=== PATIENT | female | born 1935 | race Caucasian/White ===

== ENCOUNTER → 2016-12-30 | Outpatient (REF) | payer MEDICARE, MEDICAID ==
[~2016-12-30] MED LIST: ASPI81TA85 PO; ATEN50TA2 PO; CALCTAB68 PO; HYDR12.55 PO; LISI-538 PO; METF850T PO; NAPR250T2 PO; NEXI40CA PO; NORV5TAB PO; PIOG30TA4 PO; POTA10CA PO; PRAV40TA2 PO; SITA50TAB PO; VOLT1GEL24 TD
[2016-12-30 11:54] LABS: ALBUMIN 4.2 GM/DL (3.2-5.2); ALBUMIN/GLOBULIN RATIO 1.27 (1.00-1.93); BILIRUBIN,TOTAL 0.7 MG/DL (0.2-1.0); CALCIUM LEVEL 9.6 MG/DL (8.8-10.2); CREATININE FOR GFR 1.23 MG/DL (0.55-1.02); GLOMERULAR FILTRATION RATE 44.4 (>32); POTASSIUM SERUM 4.5 MEQ/L (3.5-5.1); TOTAL PROTEIN 7.5 GM/DL (6.4-8.2)
== END ==
LOC: M SFHCLERA 09:38
PROVIDERS: ATTEND Physician Assistant
DX: I10 Essential (primary) hypertension (principal); E11.9 Type 2 diabetes mellitus without complications; E78.2 Mixed hyperlipidemia; E55.9 Vitamin D deficiency, unspecified
CPT/HCPCS: 80053; 80061; 82306; 83036; G0463

== ENCOUNTER → 2017-12-15 | Outpatient (REF) | payer MEDICARE, MEDICAID ==
[2017-12-15 16:37] LABS: HEMOGLOBIN 14.1 g/dl (12.0-15.5); MEAN CORPUSCULAR HEMOGLOBIN 29.9 pg (27.0-33.0); MEAN CORPUSCULAR HGB CONC 31.3 g/dl (32.0-36.5); MEAN CORPUSCULAR VOLUME 95.3 fl (80.0-96.0); PLATELET COUNT, AUTOMATED 232 10^3/uL (150-450); RED BLOOD COUNT 4.72 10^6/uL (4.00-5.40); RED CELL DISTRIBUTION WIDTH 13.7 % (11.5-14.5); WHITE BLOOD COUNT 10.4 10^3/uL (4.0-10.0)
[2017-12-15 16:57] LABS: ESTIMATED AVERAGE GLUCOSE 189 MG/DL (60-110); HEMOGLOBIN A1c 8.2 %
[2017-12-15 17:00] LABS: ALBUMIN/GLOBULIN RATIO 1.18 (1.00-1.93); ALKALINE PHOSPHATASE 50 U/L (45-117); ALT/SGPT 16 U/L (12-78); ANION GAP 7 MEQ/L (8-16); AST/SGOT 18 U/L (7-37); BILIRUBIN,TOTAL 0.6 MG/DL (0.2-1.0); BLOOD UREA NITROGEN 32 MG/DL (7-18); CALCIUM LEVEL 9.5 MG/DL (8.8-10.2); CARBON DIOXIDE LEVEL 22 MEQ/L (21-32); CHLORIDE LEVEL 113 MEQ/L (98-107); CHOLESTEROL LEVEL 153 MG/DL (<200); CREATININE FOR GFR 1.36 MG/DL (0.55-1.30); GLOMERULAR FILTRATION RATE 39.4 (>32); GLUCOSE, FASTING 129 MG/DL (70-100); HDL CHOLESTEROL 45 MG/DL (>40); LDL CHOLESTEROL 82.4 MG/DL (<100); MAGNESIUM LEVEL 1.4 MG/DL (1.8-2.4); NON-HDL-C 108 MG/DL; SODIUM LEVEL 142 MEQ/L (136-145); TOTAL PROTEIN 7.4 GM/DL (6.4-8.2); TRIGLYCERIDES LEVEL 128 MG/DL (<150)
[2017-12-15 17:03] LABS: POTASSIUM SERUM 5.5 MEQ/L (3.5-5.1)
[2017-12-15 17:11] LABS: MALB URINE SIEMENS 25.5 MG/L; MAU/CREAT RATIO 22.9 MCG/MG (0.0-30.0)
== END ==
LOC: M SFHCLERA 11:11
DX: E11.9 Type 2 diabetes mellitus without complications (principal); F03.90 Unspecified dementia, unspecified severity, without behavioral disturbance, psychotic disturbance, mood disturbance, and anxiety; E78.2 Mixed hyperlipidemia
CPT/HCPCS: 83735

== ENCOUNTER 2017-12-30 12:28 | Inpatient (IN) | payer MEDICARE, MEDICAID ==
[2017-12-30] MEDS ORDERED: NS 1,000 ML IV (12:59)
[2017-12-30] MEDS: NS 500 ML IV (13:00)
[2017-12-30 13:31] LABS: VENOUS BASE EXCESS -12.1 (-2.0-2.0); VENOUS HCO3 14.4 MEQ/L (23.0-27.0); VENOUS O2 SATURATION 55.9 % (60.0-80.0); VENOUS PARTIAL PRESSURE CO2 35.1 mmHg (38.0-50.0); VENOUS PARTIAL PRESSURE O2 29.1 mmHg (30.0-50.0); VENOUS PH 7.232 UNITS (7.330-7.430); VENOUS STANDARD HCO3 14.4 MEQ/L; VENOUS TOTAL CO2 15.5 MEQ/L (24.0-28.0)
[2017-12-30 13:35] LABS: BASO # 0.1 10^3/uL (0.0-0.2); BASO % 0.8 % (0.0-1.0); EOS # 0.2 10^3/uL (0.0-0.50); EOS % 1.5 % (0.0-3.0); HEMATOCRIT 43.8 % (36.0-47.0); HEMOGLOBIN 14.1 g/dl (12.0-15.5); IMMATURE GRANULOCYTE % 1.7 % (0-3.0); LYMPH # 1.3 10^3/uL (1.5-4.5); LYMPH % 13.1 % (24.0-44.0); MEAN CORPUSCULAR HEMOGLOBIN 30.1 pg (27.0-33.0); MEAN CORPUSCULAR HGB CONC 32.2 g/dl (32.0-36.5); MEAN CORPUSCULAR VOLUME 93.4 fl (80.0-96.0); MONO # 0.9 10^3/uL (0.0-0.8); MONO % 8.6 % (0.0-5.0); NEUTROPHILS # 7.6 10^3/uL (1.8-7.7); NEUTROPHILS % 74.3 % (36.0-66.0); PLATELET COUNT, AUTOMATED 235 10^3/uL (150-450); RED BLOOD COUNT 4.69 10^6/uL (4.00-5.40); RED CELL DISTRIBUTION WIDTH 14.4 % (11.5-14.5); WHITE BLOOD COUNT 10.2 10^3/uL (4.0-10.0)
[2017-12-30 13:51] LABS: AMMONIA 13 uMOL/L (<32)
[2017-12-30 13:54] LABS: LACTIC ACID SEPSIS PROTOCOL 1.5 MMOL/L (0.4-2.0)
[2017-12-30 14:52] LABS: ACETAMINOPHEN LEVEL < 2.0 UG/ML (10.0-30.0); ALBUMIN 3.3 GM/DL (3.2-5.2); ALBUMIN/GLOBULIN RATIO 0.87 (1.00-1.93); ALKALINE PHOSPHATASE 56 U/L (45-117); ALT/SGPT 15 U/L (12-78); ANION GAP 8 MEQ/L (8-16); AST/SGOT 17 U/L (7-37); BILIRUBIN,DIRECT 0.1 MG/DL (0.0-0.2); BILIRUBIN,TOTAL 0.3 MG/DL (0.2-1.0); BLOOD UREA NITROGEN 60 MG/DL (7-18); CALCIUM LEVEL 9.3 MG/DL (8.8-10.2); CARBON DIOXIDE LEVEL 15 MEQ/L (21-32); CHLORIDE LEVEL 119 MEQ/L (98-107); CPK CREATINE PHOSPHOKINASE 85 U/L (26-192); CREATININE FOR GFR 1.62 MG/DL (0.55-1.30); GLOMERULAR FILTRATION RATE 32.2 (>32); GLUCOSE, FASTING 128 MG/DL (70-100); SALICYLATE LEVEL < 1.7 MG/DL (5.0-30.0); SODIUM LEVEL 142 MEQ/L (136-145); TOTAL PROTEIN 7.1 GM/DL (6.4-8.2); TROPONIN I < 0.02 NG/ML (< 0.10)
[2017-12-30 14:55] LABS: ETHYL ALCOHOL (ETHANOL) < 0.003 % (0.000-0.010)
[2017-12-30 14:56] LABS: POTASSIUM SERUM 6.7 MEQ/L (3.5-5.1)
[2017-12-30] MEDS: HumuLIN R (REGULAR) INSULIN (NovoLIN R) **100U/ML** PER UNIT IV (15:38)
[2017-12-30] MEDS: DEXTROSE 50% 50 ML SYRINGE IV (15:38)
[2017-12-30] MEDS: LACTULOSE 20 GM/30 ML SYRUP UD PO (15:45)
[2017-12-30 15:58] LABS: KETONE, URINE AUTO RFX NEGATIVE (NEGATIVE); LEUKOCYTE ESTERASE UR AUTO RFX 1+ (NEGATIVE); MUCUS, URINE RFX SMALL (NEGATIVE); NITRITE, URINE AUTO RFX NEGATIVE (NEGATIVE); RBC, URINE AUTO RFX 2 /HPF (0-3); SPECIFIC GRAVITY UR AUTO RFX 1.014 (1.002-1.035); SQUAM EPITHELIAL CELL UR AURFX 5 /HPF (0-6); WBC, URINE AUTO RFX 10 /HPF (0-3)
[2017-12-30] MEDS: CALCIUM GLUCONATE 1,000 MG in D5W MINI-BAG PLUS 100 ML IV (16:08)
[2017-12-30] MEDS: SOD POLYSTYRENE SULFONATE SUSP 15 GM/60 ML UD PO (16:08)
[2017-12-30 16:13] LABS: AMPHETAMINES LEVEL URINE NEGATIVE (NEGATIVE); BARBITURATES URINE NEGATIVE (NEGATIVE); BENZODIAZEPINES URINE NEGATIVE (NEGATIVE); CANNABINOIDS URINE NEGATIVE (NEGATIVE); COCAINE METABOLITE URINE NEGATIVE (NEGATIVE); METHADONE URINE NEGATIVE (NEGATIVE); OPIATES URINE NEGATIVE (NEGATIVE); PHENCYCLIDINE URINE NEGATIVE (NEGATIVE)
[2017-12-30] MEDS: SODIUM BICARBONATE 150 MEQ in D5W 1,000 ML IV (16:29)
[2017-12-30] MEDS: ISOSORBIDE MON. (IMDUR) 30 MG XR TAB PO (16:30)
[2017-12-30] MEDS ORDERED: GLUCAGON FOR INJ 1 MG VIAL (J1610) SC (16:30)
[2017-12-30] MEDS ORDERED: DEXTROSE 50% 50 ML SYRINGE IV (16:30)
[2017-12-30] MEDS ORDERED: GLUCOSE 4 GM CHEW TABLET PO (16:30)
[2017-12-30] MEDS: SODIUM BICARBONATE 8.4% INJ 50 ML SYRINGE IV (16:43)
[2017-12-30] MEDS ORDERED: ACETAMINOPHEN TAB 650MG DOSE (2X325MG) PO (16:45)
[2017-12-30] MEDS ORDERED: ONDANSETRON 4MG/2ML VIAL (J2405) IV (16:45)
[2017-12-30] MEDS ORDERED: IPRATROPIUM 0.5MG/ALBUTEROL 2.5MG INH SOL UD 3ML (DUONEB)(J7620) NEB (17:00)
[2017-12-30 17:02] LABS: C REACTIVE PROTEIN QUANTITATIV 1.96 MG/DL (0.00-0.30); MAGNESIUM LEVEL 1.7 MG/DL (1.8-2.4)
[2017-12-30 17:03] LABS: INR 1.02; PROTHROMBIN TIME 13.5 SECONDS (12.4-14.5)
[2017-12-30 17:04] LABS: PARTIAL THROMBOPLASTIN TIME 31.5 SECONDS (26.8-37.9)
[2017-12-30] MEDS: NS 1,000 ML IV ×2 (17:15→21:45)
[2017-12-30 17:31] LABS: ERYTHROCYTE SEDIMENTATION RATE 29 mm/hr (0-30)
[2017-12-30] MEDS: MAGNESIUM OXIDE 400 MG TAB (MAG-OX) PO (18:00)
[2017-12-30] MEDS ORDERED: HumaLOG INSULIN (NovoLOG) PER UNIT SC (18:00)
[2017-12-30 18:16] LABS: OSMOLALITY SERUM 313 MOSM/KG (280-301)
[2017-12-30 18:18] LABS: ANION GAP 10 MEQ/L (8-16); BLOOD UREA NITROGEN 52 MG/DL (7-18); CALCIUM LEVEL 9.8 MG/DL (8.8-10.2); CARBON DIOXIDE LEVEL 17 MEQ/L (21-32); CHLORIDE LEVEL 119 MEQ/L (98-107); CREATININE FOR GFR 1.58 MG/DL (0.55-1.30); GLOMERULAR FILTRATION RATE 33.2 (>32); GLUCOSE, FASTING 88 MG/DL (70-100); MAGNESIUM LEVEL 1.5 MG/DL (1.8-2.4); SODIUM LEVEL 146 MEQ/L (136-145)
[2017-12-30 18:19] LABS: POTASSIUM SERUM 5.6 MEQ/L (3.5-5.1)
[2017-12-30] MEDS: HumaLOG INSULIN (NovoLOG) PER UNIT SC ×2 (18:25→21:00)
[2017-12-30 18:31] LABS: BEDSIDE GLUCOSE 89 MG/DL (83-110)
[2017-12-30 19:00] LABS: CK-MB VALUE MASS 4.4 NG/ML (<3.6); CPK CREATINE PHOSPHOKINASE 83 U/L (26-192); TROPONIN I < 0.02 NG/ML (< 0.10)
[2017-12-30 20:46] LABS: ANION GAP 10 MEQ/L (8-16); BLOOD UREA NITROGEN 50 MG/DL (7-18); CALCIUM LEVEL 9.9 MG/DL (8.8-10.2); CARBON DIOXIDE LEVEL 17 MEQ/L (21-32); CHLORIDE LEVEL 120 MEQ/L (98-107); CREATININE FOR GFR 1.51 MG/DL (0.55-1.30); GLUCOSE, FASTING 112 MG/DL (70-100); SODIUM LEVEL 147 MEQ/L (136-145)
[2017-12-30] MEDS: DOCUSATE SODIUM 100 MG CAP PO (21:00)
[2017-12-30] MEDS: IPRATROPIUM 0.5MG/ALBUTEROL 2.5MG INH SOL UD 3ML (DUONEB)(J7620) NEB (21:02)
[2017-12-30 21:13] LABS: BEDSIDE GLUCOSE 132 MG/DL (83-110)
[2017-12-30] MEDS: HEPARIN SOD (PORCINE) 5000 UNITS/ML VIAL SC (21:13)
[2017-12-30] MEDS: PRAVASTATIN 20 MG TAB PO (21:13)
[2017-12-30] MEDS: ISOSORBIDE DIN. (ISORDIL) 20 MG TAB PO (21:14)
[2017-12-30] MEDS: ASPIRIN 81 MG ENTERIC TAB PO (21:14)
[2017-12-30] MEDS: ATENOLOL 50 MG TAB PO (21:15)
[2017-12-30] MEDS: MAG SULF 1GM/100ML (MAG RUN) 1 GM in APPROPRIATE DILUENT 1 EA IV (21:48)
[2017-12-30 22:15] LABS: ANION GAP 10 MEQ/L (8-16); BLOOD UREA NITROGEN 50 MG/DL (7-18); CALCIUM LEVEL 9.5 MG/DL (8.8-10.2); CARBON DIOXIDE LEVEL 15 MEQ/L (21-32); CHLORIDE LEVEL 119 MEQ/L (98-107); CREATININE FOR GFR 1.47 MG/DL (0.55-1.30); GLOMERULAR FILTRATION RATE 36.1 (>32); GLUCOSE, FASTING 165 MG/DL (70-100); MAGNESIUM LEVEL 1.5 MG/DL (1.8-2.4); SODIUM LEVEL 144 MEQ/L (136-145)
[2017-12-30 23:55] LABS: BEDSIDE GLUCOSE 240 MG/DL (83-110)
[2017-12-31 01:22] LABS: ANION GAP 8 MEQ/L (8-16); BLOOD UREA NITROGEN 48 MG/DL (7-18); CALCIUM LEVEL 9.2 MG/DL (8.8-10.2); CARBON DIOXIDE LEVEL 18 MEQ/L (21-32); CHLORIDE LEVEL 117 MEQ/L (98-107); CREATININE FOR GFR 1.44 MG/DL (0.55-1.30); GLOMERULAR FILTRATION RATE 36.9 (>32); GLUCOSE, FASTING 241 MG/DL (70-100); POTASSIUM SERUM 4.5 MEQ/L (3.5-5.1); SODIUM LEVEL 143 MEQ/L (136-145)
[2017-12-31] MEDS: IPRATROPIUM 0.5MG/ALBUTEROL 2.5MG INH SOL UD 3ML (DUONEB)(J7620) NEB ×4 (03:10→20:00)
[2017-12-31 03:16] LABS: BEDSIDE GLUCOSE 184 MG/DL (83-110)
[2017-12-31 04:52] LABS: ANION GAP 8 MEQ/L (8-16); BLOOD UREA NITROGEN 43 MG/DL (7-18); CALCIUM LEVEL 8.9 MG/DL (8.8-10.2); CARBON DIOXIDE LEVEL 19 MEQ/L (21-32); CHLORIDE LEVEL 118 MEQ/L (98-107); GLOMERULAR FILTRATION RATE 41.5 (>32); GLUCOSE, FASTING 180 MG/DL (70-100); MAGNESIUM LEVEL 1.8 MG/DL (1.8-2.4); POTASSIUM SERUM 4.8 MEQ/L (3.5-5.1); SODIUM LEVEL 145 MEQ/L (136-145)
[2017-12-31 05:00] LABS: ESTIMATED AVERAGE GLUCOSE 180 MG/DL (60-110); HEMOGLOBIN A1c 7.9 %
[2017-12-31] MEDS: ISOSORBIDE DIN. (ISORDIL) 20 MG TAB PO (06:09)
[2017-12-31 06:16] LABS: BASO # 0.1 10^3/uL (0.0-0.2); BASO % 0.6 % (0.0-1.0); EOS # 0.1 10^3/uL (0.0-0.50); EOS % 1.5 % (0.0-3.0); HEMATOCRIT 35.9 % (36.0-47.0); IMMATURE GRANULOCYTE % 1.6 % (0-3.0); LYMPH # 1.6 10^3/uL (1.5-4.5); LYMPH % 18.6 % (24.0-44.0); MEAN CORPUSCULAR HEMOGLOBIN 30.6 pg (27.0-33.0); MEAN CORPUSCULAR HGB CONC 32.9 g/dl (32.0-36.5); MONO # 0.9 10^3/uL (0.0-0.8); MONO % 9.7 % (0.0-5.0); PLATELET COUNT, AUTOMATED 198 10^3/uL (150-450); RED BLOOD COUNT 3.86 10^6/uL (4.00-5.40); RED CELL DISTRIBUTION WIDTH 14.4 % (11.5-14.5); WHITE BLOOD COUNT 8.8 10^3/uL (4.0-10.0)
[2017-12-31 06:20] LABS: HEMOGLOBIN 11.8 g/dl (12.0-15.5)
[2017-12-31 06:36] LABS: ANION GAP 7 MEQ/L (8-16); BLOOD UREA NITROGEN 43 MG/DL (7-18); CALCIUM LEVEL 8.7 MG/DL (8.8-10.2); CARBON DIOXIDE LEVEL 19 MEQ/L (21-32); CHLORIDE LEVEL 117 MEQ/L (98-107); CREATININE FOR GFR 1.33 MG/DL (0.55-1.30); GLOMERULAR FILTRATION RATE 40.5 (>32); GLUCOSE, FASTING 157 MG/DL (70-100); MAGNESIUM LEVEL 1.7 MG/DL (1.8-2.4); PHOSPHORUS LEVEL 3.1 MG/DL (2.5-4.9); POTASSIUM SERUM 4.6 MEQ/L (3.5-5.1); SODIUM LEVEL 143 MEQ/L (136-145)
[2017-12-31 06:57] LABS: BEDSIDE GLUCOSE 128 MG/DL (83-110)
[2017-12-31] MEDS: HumaLOG INSULIN (NovoLOG) PER UNIT SC ×4 (08:33→21:13)
[2017-12-31] MEDS: PANTOPRAZOLE 40MG TAB (PROTONIX) PO (08:35)
[2017-12-31] MEDS: HEPARIN SOD (PORCINE) 5000 UNITS/ML VIAL SC ×2 (08:35→21:13)
[2017-12-31] MEDS: DOCUSATE SODIUM 100 MG CAP PO ×2 (08:35→20:51)
[2017-12-31] MEDS: ATENOLOL 50 MG TAB PO ×2 (08:36→21:12)
[2017-12-31] MEDS: amLODIPine 5 MG TAB PO (08:36)
[2017-12-31] MEDS: NS 1,000 ML IV ×2 (08:43→20:43)
[2017-12-31] MEDS ORDERED: ISOSORBIDE MON. (IMDUR) 30 MG XR TAB PO (09:00)
[2017-12-31 11:46] LABS: BEDSIDE GLUCOSE 197 MG/DL (83-110)
[2017-12-31] MEDS: MAGNESIUM CHLORIDE 64 MG TABCR (SLO MAG) PO (12:33)
[2017-12-31 17:35] LABS: BEDSIDE GLUCOSE 187 MG/DL (83-110)
[2017-12-31 21:04] LABS: BEDSIDE GLUCOSE 266 MG/DL (83-110)
[2017-12-31] MEDS: ASPIRIN 81 MG ENTERIC TAB PO (21:10)
[2017-12-31] MEDS: MAGNESIUM OXIDE 400 MG TAB (MAG-OX) PO (21:11)
[2017-12-31] MEDS: PRAVASTATIN 20 MG TAB PO (21:11)
[2018-01-01] MEDS: IPRATROPIUM 0.5MG/ALBUTEROL 2.5MG INH SOL UD 3ML (DUONEB)(J7620) NEB ×2 (03:00→07:26)
[2018-01-01 05:21] LABS: BASO # 0.1 10^3/uL (0.0-0.2); BASO % 0.8 % (0.0-1.0); EOS # 0.3 10^3/uL (0.0-0.50); EOS % 3.4 % (0.0-3.0); HEMATOCRIT 34.3 % (36.0-47.0); HEMOGLOBIN 11.3 g/dl (12.0-15.5); IMMATURE GRANULOCYTE % 2.1 % (0-3.0); LYMPH # 1.4 10^3/uL (1.5-4.5); LYMPH % 15.1 % (24.0-44.0); MEAN CORPUSCULAR HEMOGLOBIN 30.2 pg (27.0-33.0); MEAN CORPUSCULAR HGB CONC 32.9 g/dl (32.0-36.5); MEAN CORPUSCULAR VOLUME 91.7 fl (80.0-96.0); MONO # 0.8 10^3/uL (0.0-0.8); MONO % 9.2 % (0.0-5.0); NEUTROPHILS # 6.3 10^3/uL (1.8-7.7); NEUTROPHILS % 69.4 % (36.0-66.0); PLATELET COUNT, AUTOMATED 191 10^3/uL (150-450); RED BLOOD COUNT 3.74 10^6/uL (4.00-5.40); RED CELL DISTRIBUTION WIDTH 14.1 % (11.5-14.5); WHITE BLOOD COUNT 9.1 10^3/uL (4.0-10.0)
[2018-01-01 05:40] LABS: ANION GAP 8 MEQ/L (8-16); BLOOD UREA NITROGEN 23 MG/DL (7-18); CARBON DIOXIDE LEVEL 18 MEQ/L (21-32); CHLORIDE LEVEL 118 MEQ/L (98-107); CREATININE FOR GFR 0.98 MG/DL (0.55-1.30); GLOMERULAR FILTRATION RATE 57.6 (>32); GLUCOSE, FASTING 139 MG/DL (70-100); MAGNESIUM LEVEL 1.5 MG/DL (1.8-2.4); POTASSIUM SERUM 4.5 MEQ/L (3.5-5.1); SODIUM LEVEL 144 MEQ/L (136-145)
[2018-01-01 05:52] LABS: PHOSPHORUS LEVEL 2.2 MG/DL (2.5-4.9)
[2018-01-01 08:06] LABS: VITAMIN B12 LEVEL 362 PG/ML (247-911)
[2018-01-01 08:07] LABS: FOLATE 11.3 NG/ML (>5.4)
[2018-01-01] MEDS: MAG SULF 1GM/100ML (MAG RUN) 1 GM in APPROPRIATE DILUENT 1 EA IV (08:20)
[2018-01-01] MEDS: HumaLOG INSULIN (NovoLOG) PER UNIT SC ×2 (08:20→12:00)
[2018-01-01] MEDS: HEPARIN SOD (PORCINE) 5000 UNITS/ML VIAL SC (08:21)
[2018-01-01] MEDS: PANTOPRAZOLE 40MG TAB (PROTONIX) PO (08:21)
[2018-01-01] MEDS: MAGNESIUM OXIDE 400 MG TAB (MAG-OX) PO (08:21)
[2018-01-01] MEDS: amLODIPine 5 MG TAB PO (08:22)
[2018-01-01] MEDS: ATENOLOL 50 MG TAB PO (08:23)
[2018-01-01] MEDS: DOCUSATE SODIUM 100 MG CAP PO (08:23)
[2018-01-01] MEDS: ISOSORBIDE MON. (IMDUR) 30 MG XR TAB PO (08:23)
[2018-01-03 00:07] LABS: HOMOCYST(E)INE SERUM 20.2 umol/L (0.0-15.0)
== END 2018-01-01 12:50 | disposition home or self-care (01) | DRG 641 ==
LOC: M ED 12:28 → M ED INP 16:46 → M PCU 20:46
DX: E87.5 Hyperkalemia (principal); N17.9 Acute kidney failure, unspecified; E87.2 Acidosis; I12.9 Hypertensive chronic kidney disease with stage 1 through stage 4 chronic kidney disease, or unspecified chronic kidney disease; E11.9 Type 2 diabetes mellitus without complications; E83.42 Hypomagnesemia; N18.9 Chronic kidney disease, unspecified; F03.90 Unspecified dementia, unspecified severity, without behavioral disturbance, psychotic disturbance, mood disturbance, and anxiety; I16.0 Hypertensive urgency; E78.5 Hyperlipidemia, unspecified; K21.9 Gastro-esophageal reflux disease without esophagitis; E87.8 Other disorders of electrolyte and fluid balance, not elsewhere classified; Z91.14 Patient's other noncompliance with medication regimen; Z79.82 Long term (current) use of aspirin; Z79.84 Long term (current) use of oral hypoglycemic drugs; Z79.899 Other long term (current) drug therapy; Z90.49 Acquired absence of other specified parts of digestive tract

== ENCOUNTER → 2017-12-30 | Outpatient (REF) | payer MEDICARE, MEDICAID ==
[2017-12-30 11:31] LABS: ALBUMIN 3.8 GM/DL (3.2-5.2); ALBUMIN/GLOBULIN RATIO 0.95 (1.00-1.93); ALKALINE PHOSPHATASE 62 U/L (45-117); ALT/SGPT 19 U/L (12-78); ANION GAP 8 MEQ/L (8-16); AST/SGOT 17 U/L (7-37); BILIRUBIN,TOTAL 0.3 MG/DL (0.2-1.0); BLOOD UREA NITROGEN 60 MG/DL (7-18); CALCIUM LEVEL 10.1 MG/DL (8.8-10.2); CARBON DIOXIDE LEVEL 16 MEQ/L (21-32); CHLORIDE LEVEL 118 MEQ/L (98-107); CREATININE FOR GFR 1.78 MG/DL (0.55-1.30); GLOMERULAR FILTRATION RATE 28.9 (>32); GLUCOSE, FASTING 228 MG/DL (70-100); SODIUM LEVEL 142 MEQ/L (136-145); TOTAL PROTEIN 7.8 GM/DL (6.4-8.2)
[2017-12-30 11:47] LABS: POTASSIUM SERUM 6.7 MEQ/L (3.5-5.1)
== END ==
LOC: M SFHCLERA 09:07
DX: F03.90 Unspecified dementia, unspecified severity, without behavioral disturbance, psychotic disturbance, mood disturbance, and anxiety (principal)

== ENCOUNTER → 2018-01-09 | Outpatient (REF) | payer MEDICARE, MEDICAID ==
[2018-01-09 11:38] LABS: ALBUMIN 3.5 GM/DL (3.2-5.2); ALBUMIN/GLOBULIN RATIO 1.03 (1.00-1.93); ALKALINE PHOSPHATASE 46 U/L (45-117); ALT/SGPT 22 U/L (12-78); ANION GAP 6 MEQ/L (8-16); AST/SGOT 19 U/L (7-37); BILIRUBIN,TOTAL 0.4 MG/DL (0.2-1.0); BLOOD UREA NITROGEN 34 MG/DL (7-18); CALCIUM LEVEL 9.7 MG/DL (8.8-10.2); CARBON DIOXIDE LEVEL 29 MEQ/L (21-32); CHLORIDE LEVEL 105 MEQ/L (98-107); CREATININE FOR GFR 1.31 MG/DL (0.55-1.30); GLOMERULAR FILTRATION RATE 41.2 (>32); GLUCOSE, FASTING 170 MG/DL (70-100); MAGNESIUM LEVEL 1.4 MG/DL (1.8-2.4); POTASSIUM SERUM 5.1 MEQ/L (3.5-5.1); SODIUM LEVEL 140 MEQ/L (136-145); TOTAL PROTEIN 6.9 GM/DL (6.4-8.2)
== END ==
LOC: M SFHCLERA 08:20
DX: N18.2 Chronic kidney disease, stage 2 (mild) (principal); R79.0 Abnormal level of blood mineral
CPT/HCPCS: 83735

== ENCOUNTER → 2018-02-07 | Outpatient (CLI) | payer MEDICARE, MEDICAID ==
[2018-02-07 12:22] LABS: RHEUMATOID FACTOR QUANT < 10.0 IU/ML (<15.0)
[2018-02-07 12:23] LABS: BASO % 0.8 % (0.0-1.0); EOS % 1.4 % (0.0-3.0); HEMATOCRIT 38.2 % (36.0-47.0); LYMPH % 18.1 % (24.0-44.0); MEAN CORPUSCULAR HEMOGLOBIN 30.5 pg (27.0-33.0); MEAN CORPUSCULAR HGB CONC 31.4 g/dl (32.0-36.5); MEAN CORPUSCULAR VOLUME 97.2 fl (80.0-96.0); MONO % 8.1 % (0.0-5.0); NEUTROPHILS % 69.6 % (36.0-66.0); PLATELET COUNT, AUTOMATED 231 10^3/uL (150-450); RED BLOOD COUNT 3.93 10^6/uL (4.00-5.40); WHITE BLOOD COUNT 11.1 10^3/uL (4.0-10.0)
[2018-02-07 12:24] LABS: BASO # 0.1 10^3/uL (0.0-0.2); EOS # 0.2 10^3/uL (0.0-0.50); MONO # 0.9 10^3/uL (0.0-0.8); NEUTROPHILS # 7.7 10^3/uL (1.8-7.7); POSITIVE DIFF 0.22
[2018-02-07 12:31] LABS: ALBUMIN 3.6 GM/DL (3.2-5.2); ALBUMIN/GLOBULIN RATIO 1.06 (1.00-1.93); ALKALINE PHOSPHATASE 46 U/L (45-117); ALT/SGPT 18 U/L (12-78); ANION GAP 10 MEQ/L (8-16); AST/SGOT 12 U/L (7-37); BILIRUBIN,TOTAL 0.5 MG/DL (0.2-1.0); BLOOD UREA NITROGEN 31 MG/DL (7-18); CARBON DIOXIDE LEVEL 29 MEQ/L (21-32); CHLORIDE LEVEL 106 MEQ/L (98-107); CREATININE FOR GFR 1.22 MG/DL (0.55-1.30); FREE T4 1.06 NG/DL (0.76-1.46); GLOMERULAR FILTRATION RATE 44.7 (>32); GLUCOSE, FASTING 172 MG/DL (70-100); POTASSIUM SERUM 4.3 MEQ/L (3.5-5.1); SODIUM LEVEL 145 MEQ/L (136-145)
[2018-02-07 12:56] LABS: ERYTHROCYTE SEDIMENTATION RATE 25 mm/hr (0-30)
[2018-02-09 00:09] LABS: ANTINUCLEAR ANTIBODIES DIRECT Negative (Negative)
[2018-02-10 15:28] LABS: VITAMIN E(ALPHA TOCOPHEROL) 9.9 mg/L (9.0-29.0); VITAMIN E(GAMMA TOCOPHEROL) 1.4 mg/L (0.5-4.9)
[2018-02-12 00:07] LABS: VITAMIN B1 LEVEL WHOLE BLOOD 131.9 nmol/L (66.5-200.0); VITAMIN B6,PYRIDOXAL PHOSPHATE 9.5 ug/L (2.0-32.8)
== END ==
LOC: M LRY 10:01
DX: E07.9 Disorder of thyroid, unspecified (principal); Z11.59 Encounter for screening for other viral diseases
CPT/HCPCS: 84443

== ENCOUNTER 2018-04-04 18:55 | Inpatient (IN) | payer MEDICARE, MEDICAID ==
[2018-04-04 20:26] LABS: BASO # 0.1 10^3/uL (0.0-0.2); BASO % 0.4 % (0.0-1.0); EOS # 0.3 10^3/uL (0.0-0.50); EOS % 1.6 % (0.0-3.0); HEMATOCRIT 38.6 % (36.0-47.0); HEMOGLOBIN 12.5 g/dl (12.0-15.5); IMMATURE GRANULOCYTE % 1.5 % (0-3.0); LYMPH # 2.1 10^3/uL (1.5-4.5); LYMPH % 13.2 % (24.0-44.0); MEAN CORPUSCULAR HEMOGLOBIN 30.5 pg (27.0-33.0); MEAN CORPUSCULAR HGB CONC 32.4 g/dl (32.0-36.5); MEAN CORPUSCULAR VOLUME 94.1 fl (80.0-96.0); MONO # 0.8 10^3/uL (0.0-0.8); NEUTROPHILS # 12.5 10^3/uL (1.8-7.7); NEUTROPHILS % 78.3 % (36.0-66.0); PLATELET COUNT, AUTOMATED 253 10^3/uL (150-450); RED CELL DISTRIBUTION WIDTH 15.1 % (11.5-14.5); VENOUS BASE EXCESS -8.9 (-2.0-2.0); VENOUS HCO3 17.2 MEQ/L (23.0-27.0); VENOUS O2 SATURATION 75.6 % (60.0-80.0); VENOUS PARTIAL PRESSURE CO2 37.9 mmHg (38.0-50.0); VENOUS PARTIAL PRESSURE O2 39.1 mmHg (30.0-50.0); VENOUS PH 7.275 UNITS (7.330-7.430); VENOUS TOTAL CO2 18.4 MEQ/L (24.0-28.0)
[2018-04-04] MEDS: CALCIUM CHLORIDE 10% 1 GM in D5W 100 ML IV (20:46)
[2018-04-04] MEDS: HumuLIN R (REGULAR) INSULIN (NovoLIN R) **100U/ML** PER UNIT IV (20:47)
[2018-04-04] MEDS: SOD POLYSTYRENE SULFONATE SUSP 15 GM/60 ML UD PO (20:47)
[2018-04-04] MEDS: DEXTROSE 50% 50 ML SYRINGE IV (20:47)
[2018-04-04] MEDS: NS 1,000 ML IV (20:47)
[2018-04-04 20:49] LABS: ALBUMIN 3.3 GM/DL (3.2-5.2); ALKALINE PHOSPHATASE 51 U/L (45-117); ALT/SGPT 18 U/L (12-78); ANION GAP 12 MEQ/L (8-16); AST/SGOT 15 U/L (7-37); BILIRUBIN,DIRECT 0.1 MG/DL (0.0-0.2); BILIRUBIN,TOTAL 0.3 MG/DL (0.2-1.0); BLOOD UREA NITROGEN 69 MG/DL (7-18); CALCIUM LEVEL 9.9 MG/DL (8.8-10.2); CARBON DIOXIDE LEVEL 16 MEQ/L (21-32); CHLORIDE LEVEL 108 MEQ/L (98-107); CPK CREATINE PHOSPHOKINASE 45 U/L (26-192); CREATININE FOR GFR 2.01 MG/DL (0.55-1.30); GLOMERULAR FILTRATION RATE 25.1 (>32); GLUCOSE, FASTING 102 MG/DL (70-100); LIPASE 799 U/L (73-393); MAGNESIUM LEVEL 1.7 MG/DL (1.8-2.4); PHOSPHORUS LEVEL 1.3 MG/DL (2.5-4.9); SODIUM LEVEL 136 MEQ/L (136-145); TOTAL PROTEIN 7.4 GM/DL (6.4-8.2); TROPONIN I < 0.02 NG/ML (< 0.10)
[2018-04-04 20:51] LABS: POTASSIUM SERUM 5.9 MEQ/L (3.5-5.1)
[2018-04-04 20:57] LABS: CK-MB VALUE MASS 2.2 NG/ML (<3.6); MB/CK RELATIVE INDEX 4.88 (< OR =4)
[2018-04-04 20:58] LABS: BEDSIDE GLUCOSE 90 MG/DL (83-110)
[2018-04-04] MEDS: HumaLOG INSULIN (NovoLOG) PER UNIT SC (21:00)
[2018-04-04 21:44] LABS: KETONE, URINE AUTO RFX NEGATIVE (NEGATIVE); LEUKOCYTE ESTERASE UR AUTO RFX 2+ (NEGATIVE); MICROSCOPIC INDICATED? RFX YES (NO); MUCUS, URINE RFX SMALL (NEGATIVE); NITRITE, URINE AUTO RFX POSITIVE (NEGATIVE); RBC, URINE AUTO RFX 3 /HPF (0-3); SPECIFIC GRAVITY UR AUTO RFX 1.018 (1.002-1.035); SQUAM EPITHELIAL CELL UR AURFX 0 /HPF (0-6); WBC, URINE AUTO RFX 32 /HPF (0-3)
[2018-04-04 22:27] LABS: BEDSIDE GLUCOSE 122 MG/DL (83-110)
[2018-04-04] MEDS ORDERED: GLUCOSE 4 GM CHEW TABLET PO (22:45)
[2018-04-04] MEDS ORDERED: DEXTROSE 50% 50 ML SYRINGE IV (22:45)
[2018-04-04] MEDS ORDERED: GLUCAGON FOR INJ 1 MG VIAL (J1610) SC (22:45)
[2018-04-05] MEDS: NS 1,000 ML IV ×3 (00:27→23:02)
[2018-04-05] MEDS: MAG SULF 1GM/100ML (MAG RUN) 1 GM in APPROPRIATE DILUENT 1 EA IV (00:47)
[2018-04-05] MEDS: HEPARIN SOD (PORCINE) 5000 UNITS/ML VIAL SC ×4 (00:47→21:16)
[2018-04-05] MEDS: ASPIRIN 81 MG ENTERIC TAB PO ×2 (00:47→21:17)
[2018-04-05] MEDS: PRAVASTATIN 20 MG TAB PO ×2 (00:48→21:17)
[2018-04-05] MEDS: ATENOLOL 50 MG TAB PO ×3 (00:48→21:17)
[2018-04-05 01:08] LABS: BEDSIDE GLUCOSE 65 MG/DL (83-110)
[2018-04-05 06:31] LABS: ESTIMATED AVERAGE GLUCOSE 108 MG/DL (60-110); HEMOGLOBIN A1c 5.4 %
[2018-04-05 06:32] LABS: ANION GAP 8 MEQ/L (8-16); BLOOD UREA NITROGEN 56 MG/DL (7-18); CARBON DIOXIDE LEVEL 18 MEQ/L (21-32); CHLORIDE LEVEL 115 MEQ/L (98-107); CREATININE FOR GFR 1.43 MG/DL (0.55-1.30); GLOMERULAR FILTRATION RATE 37.2 (>32); GLUCOSE, FASTING 87 MG/DL (70-100); LIPASE 593 U/L (73-393); PHOSPHORUS LEVEL 1.8 MG/DL (2.5-4.9); POTASSIUM SERUM 4.3 MEQ/L (3.5-5.1); SODIUM LEVEL 141 MEQ/L (136-145)
[2018-04-05] MEDS: HumaLOG INSULIN (NovoLOG) PER UNIT SC ×4 (07:30→21:00)
[2018-04-05 08:01] LABS: BASO # 0.1 10^3/uL (0.0-0.2); BASO % 0.7 % (0.0-1.0); EOS # 0.3 10^3/uL (0.0-0.50); EOS % 2.6 % (0.0-3.0); HEMATOCRIT 34.7 % (36.0-47.0); HEMOGLOBIN 11.4 g/dl (12.0-15.5); LYMPH # 1.7 10^3/uL (1.5-4.5); MEAN CORPUSCULAR HEMOGLOBIN 30.9 pg (27.0-33.0); MEAN CORPUSCULAR HGB CONC 32.9 g/dl (32.0-36.5); MONO # 0.7 10^3/uL (0.0-0.8); MONO % 5.7 % (0.0-5.0); NEUTROPHILS # 8.4 10^3/uL (1.8-7.7); PLATELET COUNT, AUTOMATED 225 10^3/uL (150-450); RED BLOOD COUNT 3.69 10^6/uL (4.00-5.40); RED CELL DISTRIBUTION WIDTH 15.2 % (11.5-14.5); WHITE BLOOD COUNT 11.4 10^3/uL (4.0-10.0)
[2018-04-05] MEDS: amLODIPine 5 MG TAB PO (08:51)
[2018-04-05] MEDS: NEUTRA-PHOS 1.25 GM PACKET PO ×3 (08:53→21:16)
[2018-04-05] MEDS: cefTRIAXone SOD 1 GM in D5W MINI-BAG PLUS 50 ML IV (08:53)
[2018-04-05 12:03] LABS: BEDSIDE GLUCOSE 87 MG/DL (83-110)
[2018-04-05] MEDS ORDERED: LOPERAMIDE 2 MG CAP PO (14:30)
[2018-04-05 16:43] LABS: BEDSIDE GLUCOSE 127 MG/DL (83-110)
[2018-04-05 20:38] LABS: SODIUM,RANDOM URINE 117 MEQ/L
[2018-04-05 20:38] LABS: CHLORIDE,RANDOM URINE 146 MEQ/L; POTASSIUM RANDOM URINE 18.4 MEQ/L
[2018-04-05 21:27] LABS: BEDSIDE GLUCOSE 137 MG/DL (83-110)
[2018-04-06] MEDS: HEPARIN SOD (PORCINE) 5000 UNITS/ML VIAL SC (05:30)
[2018-04-06 05:38] LABS: HEMATOCRIT 35.3 % (36.0-47.0); HEMOGLOBIN 11.2 g/dl (12.0-15.5); MEAN CORPUSCULAR HEMOGLOBIN 30.4 pg (27.0-33.0); MEAN CORPUSCULAR HGB CONC 31.7 g/dl (32.0-36.5); MEAN CORPUSCULAR VOLUME 95.9 fl (80.0-96.0); PLATELET COUNT, AUTOMATED 220 10^3/uL (150-450); RED BLOOD COUNT 3.68 10^6/uL (4.00-5.40); RED CELL DISTRIBUTION WIDTH 15.1 % (11.5-14.5); WHITE BLOOD COUNT 9.8 10^3/uL (4.0-10.0)
[2018-04-06 05:39] LABS: ADD MANUAL DIFFER YES; DIFF SLIDE NUMBER 50; POS COUNT POS FLAG; POSITIVE MORPH POS FLAG
[2018-04-06 06:03] LABS: ANION GAP 8 MEQ/L (8-16); BLOOD UREA NITROGEN 30 MG/DL (7-18); CALCIUM LEVEL 8.5 MG/DL (8.8-10.2); CARBON DIOXIDE LEVEL 19 MEQ/L (21-32); CHLORIDE LEVEL 117 MEQ/L (98-107); CREATININE FOR GFR 1.02 MG/DL (0.55-1.30); GLUCOSE, FASTING 99 MG/DL (70-100); MAGNESIUM LEVEL 1.2 MG/DL (1.8-2.4); PHOSPHORUS LEVEL 2.7 MG/DL (2.5-4.9); POTASSIUM SERUM 4.7 MEQ/L (3.5-5.1); SODIUM LEVEL 144 MEQ/L (136-145)
[2018-04-06 06:09] LABS: ANISOCYTOSIS 1+; ATYPICAL LYMPH 1 % (0-5); EOSINOPHILS 7 % (0-5); LYMPHOCYTES 19 % (16-52); METAMYELOCYTES 1 % (0-0); MONOCYTES 6 % (0-8); MYELOCYTES 2 % (0-0); NEUTROPHILS 64 % (35-75); PLATELET ESTIMATE NORMAL (NORMAL)
[2018-04-06] MEDS: MAG SULF 1GM/100ML (MAG RUN) 1 GM in APPROPRIATE DILUENT 1 EA IV (06:50)
[2018-04-06] MEDS: MAGNESIUM OXIDE 400 MG TAB (MAG-OX) PO ×2 (06:50→08:52)
[2018-04-06] MEDS: HumaLOG INSULIN (NovoLOG) PER UNIT SC (07:30)
[2018-04-06] MEDS: CEPHALEXIN 500 MG CAP PO (08:52)
[2018-04-06] MEDS: NEUTRA-PHOS 1.25 GM PACKET PO (08:53)
[2018-04-06] MEDS: ATENOLOL 50 MG TAB PO (08:53)
[2018-04-06] MEDS: amLODIPine 5 MG TAB PO (08:53)
== END 2018-04-06 11:25 | disposition home or self-care (01) | DRG 683 ==
LOC: M ED 18:55 → M ED INP 22:44 → M PCU 23:50
DX: N17.9 Acute kidney failure, unspecified (principal); E87.2 Acidosis; N39.0 Urinary tract infection, site not specified; Z68.1 Body mass index [BMI] 19.9 or less, adult; R63.0 Anorexia; R19.7 Diarrhea, unspecified; G30.1 Alzheimer's disease with late onset; F02.80 Dementia in other diseases classified elsewhere, unspecified severity, without behavioral disturbance, psychotic disturbance, mood disturbance, and anxiety; E11.9 Type 2 diabetes mellitus without complications; E87.5 Hyperkalemia; B96.20 Unspecified Escherichia coli [E. coli] as the cause of diseases classified elsewhere; E83.42 Hypomagnesemia; E83.39 Other disorders of phosphorus metabolism; I10 Essential (primary) hypertension; E78.5 Hyperlipidemia, unspecified; K21.9 Gastro-esophageal reflux disease without esophagitis; D50.9 Iron deficiency anemia, unspecified; Z90.49 Acquired absence of other specified parts of digestive tract; Z79.82 Long term (current) use of aspirin; Z79.4 Long term (current) use of insulin; Z79.899 Other long term (current) drug therapy

== ENCOUNTER → 2018-04-04 | Outpatient (REF) | payer MEDICARE, MEDICAID ==
[2018-04-04 17:09] LABS: BASO # 0.1 10^3/uL (0.0-0.2); BASO % 0.4 % (0.0-1.0); EOS # 0.2 10^3/uL (0.0-0.50); EOS % 1.4 % (0.0-3.0); HEMATOCRIT 40.9 % (36.0-47.0); HEMOGLOBIN 12.9 g/dl (12.0-15.5); IMMATURE GRANULOCYTE % 1.5 % (0-3.0); LYMPH # 1.9 10^3/uL (1.5-4.5); LYMPH % 11.7 % (24.0-44.0); MEAN CORPUSCULAR HEMOGLOBIN 30.4 pg (27.0-33.0); MEAN CORPUSCULAR HGB CONC 31.5 g/dl (32.0-36.5); MEAN CORPUSCULAR VOLUME 96.2 fl (80.0-96.0); MONO # 0.9 10^3/uL (0.0-0.8); MONO % 5.3 % (0.0-5.0); NEUTROPHILS # 12.7 10^3/uL (1.8-7.7); NEUTROPHILS % 79.7 % (36.0-66.0); PLATELET COUNT, AUTOMATED 251 10^3/uL (150-450); RED BLOOD COUNT 4.25 10^6/uL (4.00-5.40); RED CELL DISTRIBUTION WIDTH 15.3 % (11.5-14.5); WHITE BLOOD COUNT 15.9 10^3/uL (4.0-10.0)
[2018-04-04 17:31] LABS: ESTIMATED AVERAGE GLUCOSE 117 MG/DL (60-110); HEMOGLOBIN A1c 5.7 %
[2018-04-04 17:40] LABS: ANION GAP 9 MEQ/L (8-16); BLOOD UREA NITROGEN 71 MG/DL (7-18); CALCIUM LEVEL 10.3 MG/DL (8.8-10.2); CARBON DIOXIDE LEVEL 22 MEQ/L (21-32); CHLORIDE LEVEL 106 MEQ/L (98-107); CREATININE FOR GFR 2.07 MG/DL (0.55-1.30); GLOMERULAR FILTRATION RATE 24.3 (>32); GLUCOSE, FASTING 113 MG/DL (70-100); MAGNESIUM LEVEL 1.5 MG/DL (1.8-2.4); SODIUM LEVEL 137 MEQ/L (136-145)
== END ==
LOC: M SFHCLERA 14:41
DX: R19.7 Diarrhea, unspecified (principal); R63.4 Abnormal weight loss; R63.0 Anorexia; G30.1 Alzheimer's disease with late onset; F02.80 Dementia in other diseases classified elsewhere, unspecified severity, without behavioral disturbance, psychotic disturbance, mood disturbance, and anxiety; E11.9 Type 2 diabetes mellitus without complications
CPT/HCPCS: 83735

== ENCOUNTER → 2018-04-09 | Outpatient (REF) | payer MEDICARE, MEDICAID ==
[2018-04-09 16:59] LABS: ANION GAP 9 MEQ/L (8-16); BLOOD UREA NITROGEN 29 MG/DL (7-18); CALCIUM LEVEL 9.2 MG/DL (8.8-10.2); CARBON DIOXIDE LEVEL 26 MEQ/L (21-32); CHLORIDE LEVEL 106 MEQ/L (98-107); CREATININE FOR GFR 1.08 MG/DL (0.55-1.30); GLOMERULAR FILTRATION RATE 51.5 (>32); GLUCOSE, FASTING 144 MG/DL (70-100); MAGNESIUM LEVEL 1.5 MG/DL (1.8-2.4); POTASSIUM SERUM 4.6 MEQ/L (3.5-5.1); SODIUM LEVEL 141 MEQ/L (136-145)
== END ==
LOC: M SFHCLERA 14:19
DX: R79.0 Abnormal level of blood mineral (principal)
CPT/HCPCS: 83735

== ENCOUNTER → 2018-05-07 | Outpatient (REF) | payer MEDICARE, MEDICAID ==
[2018-05-07 13:42] LABS: ANION GAP 8 MEQ/L (8-16); BLOOD UREA NITROGEN 29 MG/DL (7-18); CALCIUM LEVEL 9.2 MG/DL (8.8-10.2); CARBON DIOXIDE LEVEL 27 MEQ/L (21-32); CHLORIDE LEVEL 107 MEQ/L (98-107); CREATININE FOR GFR 1.18 MG/DL (0.55-1.30); GLOMERULAR FILTRATION RATE 46.5 (>32); GLUCOSE, FASTING 129 MG/DL (70-100); MAGNESIUM LEVEL 1.8 MG/DL (1.8-2.4); POTASSIUM SERUM 5.4 MEQ/L (3.5-5.1); SODIUM LEVEL 142 MEQ/L (136-145)
== END ==
LOC: M SFHCLERA 09:28
DX: I10 Essential (primary) hypertension (principal); E83.42 Hypomagnesemia
CPT/HCPCS: 83735

== ENCOUNTER → 2018-09-24 | Outpatient (REF) | payer MEDICARE, MEDICAID ==
[~2018-09-24] MED LIST changes: +AMLO5TAB6 PO; +ASPI81TAEC PO; +CEPH500C PO; +DONETAB6 PO; +FOSA70TA PO; +ISOS30TA4 PO; +KLOR10TA76 PO; +MAG400TA PO; +MAGN64TASA PO; +MEMA1TAB2; +MEMA1TAB2 PO; -METF850T PO; +METF850T4 PO; -NAPR250T2 PO; +NAPR250T4 PO; +PIOG1TAB37 PO; -PIOG30TA4 PO; -POTA10CA PO; +POTA1TAB21 PO; +SPIR-10 PO; +TOUJ1.2I; +TOUJ1.2I SC; +VOLT1GEL15 TD; +VOLT1GEL15 TOP; -VOLT1GEL24 TD
[2018-09-24 12:09] LABS: HEMOGLOBIN A1c 8.4 %
[2018-09-24 12:10] LABS: CALCIUM LEVEL 9.7 MG/DL (8.8-10.2); CREATININE FOR GFR 1.31 MG/DL (0.55-1.30); GLOMERULAR FILTRATION RATE 41.2 (>32); POTASSIUM SERUM 4.5 MEQ/L (3.5-5.1)
[2018-09-24 12:31] LABS: MALB URINE SIEMENS 67.9 MG/L; MAU/CREAT RATIO 35.3 MCG/MG (0.0-30.0)
== END ==
LOC: M SFHCLERA 07:56
PROVIDERS: ATTEND Family Medicine
DX: I10 Essential (primary) hypertension (principal); E11.9 Type 2 diabetes mellitus without complications
CPT/HCPCS: 80048; 82043; 83036; G0463

== ENCOUNTER → 2018-10-25 | Outpatient (REF) | payer MEDICARE, MEDICAID | LOC: M LAB REF 13:15 | PROVIDERS: ATTEND Internal Medicine Nephrology | DX: N39.0 Urinary tract infection, site not specified (principal) ==

== ENCOUNTER → 2018-12-24 | Outpatient (REF) | payer MEDICARE, MEDICAID ==
[2018-12-24 19:02] LABS: HEMOGLOBIN A1c 7.1 %
[2018-12-24 19:18] LABS: CALCIUM LEVEL 9.4 MG/DL (8.8-10.2); CHOLESTEROL RISK RATIO 2.957 (<5); CREATININE FOR GFR 1.27 MG/DL (0.55-1.30); GLOMERULAR FILTRATION RATE 42.6 (>32); POTASSIUM SERUM 3.9 MEQ/L (3.5-5.1)
== END ==
LOC: M SFHCLERA 12:18
PROVIDERS: ATTEND Family Medicine
DX: E11.9 Type 2 diabetes mellitus without complications (principal); E78.2 Mixed hyperlipidemia; I10 Essential (primary) hypertension
CPT/HCPCS: 80048; 80061; 83036; G0463

== ENCOUNTER → 2019-04-26 | Outpatient (REF) | payer MEDICARE, MEDICAID ==
[2019-04-26 11:44] LABS: CALCIUM LEVEL 9.4 MG/DL (8.8-10.2); CREATININE FOR GFR 1.5 MG/DL (0.55-1.30); GLOMERULAR FILTRATION RATE 35.1 (>32); POTASSIUM SERUM 3.5 MEQ/L (3.5-5.1)
[2019-04-26 12:21] LABS: HEMOGLOBIN A1c 7.7 %
== END ==
LOC: M SFHCLERA 09:00
PROVIDERS: ATTEND Family Medicine
DX: E11.9 Type 2 diabetes mellitus without complications (principal)

== ENCOUNTER → 2019-05-01 | Outpatient (REF) | payer MEDICARE, MEDICAID ==
[2019-05-01 17:17] LABS: CALCIUM LEVEL 9.6 MG/DL (8.8-10.2); CREATININE FOR GFR 1.31 MG/DL (0.55-1.30); GLOMERULAR FILTRATION RATE 41.1 (>32); POTASSIUM SERUM 3.9 MEQ/L (3.5-5.1)
== END ==
LOC: M SFHCLERA 12:19
PROVIDERS: ATTEND Family Medicine
DX: N18.3 Chronic kidney disease, stage 3 (moderate) (principal)
CPT/HCPCS: 80048; G0463

== ENCOUNTER → 2019-11-26 | Outpatient (REF) | payer MEDICARE, MEDICAID ==
[~2019-11-26] MED LIST changes: +MEMA10TA19; +MEMA10TA19 PO; -MEMA1TAB2; -MEMA1TAB2 PO
== END ==
LOC: M SFHCLERA 10:37
PROVIDERS: ATTEND Family Medicine
DX: R35.0 Frequency of micturition (principal)

== ENCOUNTER → 2020-01-24 | Outpatient (REF) | payer MEDICARE, MEDICAID ==
[2020-01-24 17:37] LABS: CALCIUM LEVEL 9.6 MG/DL (8.8-10.2); CHOLESTEROL RISK RATIO 3.193 (<5); CREATININE FOR GFR 1.34 MG/DL (0.55-1.30); GLOMERULAR FILTRATION RATE 39.9 (>32); HEMATOCRIT 41.4 % (36.0-47.0); HEMOGLOBIN 12.8 g/dl (12.0-15.5); MEAN CORPUSCULAR HEMOGLOBIN 29.4 pg (27.0-33.0); MEAN CORPUSCULAR HGB CONC 30.9 g/dl (32.0-36.5); PLATELET COUNT, AUTOMATED 331 10^3/uL (150-450); POTASSIUM SERUM 4.3 MEQ/L (3.5-5.1); RED BLOOD COUNT 4.36 10^6/uL (4.00-5.40); WHITE BLOOD COUNT 12.7 10^3/uL (4.0-10.0)
[2020-01-24 18:28] LABS: MALB URINE SIEMENS < 5.0 MG/L; MAU/CREAT RATIO 4.6 MCG/MG (0.0-30.0)
[2020-01-24 19:04] LABS: HEMOGLOBIN A1c 8.6 %
[2020-01-24 19:07] LABS: BASOPHILS 1 % (0-1); LYMPHOCYTES 24 % (16-44); METAMYELOCYTES 1 % (0-0); MONOCYTES 6 % (0-5); NEUTROPHILS 66 % (28-66); PLATELET ESTIMATE NORMAL (NORMAL)
== END ==
LOC: M SFHCLERA 09:28
PROVIDERS: ATTEND Family Medicine
DX: I10 Essential (primary) hypertension (principal); E11.21 Type 2 diabetes mellitus with diabetic nephropathy; E78.2 Mixed hyperlipidemia

== ENCOUNTER → 2020-11-09 | Outpatient (REF) | payer MEDICARE, MEDICAID ==
[~2020-11-09] MED LIST changes: +AMLO1TAB24 PO; -AMLO5TAB6 PO; +ASPI-569 PO; -ASPI81TA85 PO; +ASPI81TA86 PO; -ASPI81TAEC PO; +ISOS1TAB35 PO; -ISOS30TA4 PO; -LISI-538 PO; +LISI20TA33 PO; -MAG400TA PO; +MAGN400T35 PO; +NAPR-849 PO; -NAPR250T4 PO
== END ==
LOC: M SFHCLERA 11:04
PROVIDERS: ATTEND Nurse Practitioner Family
DX: R73.9 Hyperglycemia, unspecified (principal); Z79.899 Other long term (current) drug therapy
CPT/HCPCS: 81002; 87088; 87186; G0463

== ENCOUNTER → 2020-11-16 | Outpatient (CLI) | payer MEDICARE, MEDICAID ==
[2020-11-16 13:20] LABS: BASO # 0.1 10^3/uL (0.0-0.2); BASO % 0.8 % (0.0-1.0); EOS # 0.2 10^3/uL (0.0-0.5); EOS % 1.7 % (0.0-3.0); HEMATOCRIT 44.5 % (36.0-47.0); HEMOGLOBIN 13.8 g/dl (12.0-15.5); LYMPH # 3.6 10^3/uL (1.5-5.0); LYMPH % 24.8 % (24.0-44.0); MEAN CORPUSCULAR HEMOGLOBIN 30.1 pg (27.0-33.0); MEAN CORPUSCULAR VOLUME 97.2 fl (80.0-96.0); MONO # 1.2 10^3/uL (0.0-0.8); MONO % 8.4 % (2.0-8.0); PLATELET COUNT, AUTOMATED 205 10^3/uL (150-450); RED BLOOD COUNT 4.58 10^6/uL (4.00-5.40); WHITE BLOOD COUNT 14.3 10^3/uL (4.0-10.0)
[2020-11-16 13:49] LABS: CALCIUM LEVEL 10.5 MG/DL (8.8-10.2); CHOLESTEROL RISK RATIO 3.3 (<5); CREATININE FOR GFR 1.51 MG/DL (0.55-1.30); GLOMERULAR FILTRATION RATE 34.7 (>32); POTASSIUM SERUM 4.5 MEQ/L (3.5-5.1)
[2020-11-16 13:50] LABS: MALB URINE SIEMENS 10.2 MG/L; MAU/CREAT RATIO 8.7 MCG/MG (0.0-30.0)
[2020-11-16 15:11] LABS: HEMOGLOBIN A1c 8.7 %
== END ==
LOC: M WUC 11:47
PROVIDERS: ATTEND Family Medicine
DX: E11.22 Type 2 diabetes mellitus with diabetic chronic kidney disease (principal); E78.2 Mixed hyperlipidemia
CPT/HCPCS: 36415; 80048; 80061; 82043; 83036; 85025; G0463

== ENCOUNTER → 2020-12-02 | Outpatient (REF) | payer MEDICARE, MEDICAID | LOC: M SFHCLERA 16:00 | PROVIDERS: ATTEND Nurse Practitioner Family | DX: R82.90 Unspecified abnormal findings in urine (principal) | CPT/HCPCS: 81002; 87086; G0463 ==

== ENCOUNTER → 2020-12-11 | Outpatient (REF) | payer MEDICARE, MEDICAID | LOC: M LAB REF 16:56 | PROVIDERS: ATTEND Nurse Practitioner Family | DX: N39.0 Urinary tract infection, site not specified (principal) ==

== ENCOUNTER → 2021-02-09 | Outpatient (REF) | payer MEDICARE, MEDICAID | LOC: M SFHCLERA 15:49 | PROVIDERS: ATTEND Nurse Practitioner Family | DX: R82.90 Unspecified abnormal findings in urine (principal) | CPT/HCPCS: 81002; 82948; 87088; 87186; G0463 ==